=== PATIENT | female | born 1990 | race Hispanic/Latino ===

== ENCOUNTER 2016-08-18 11:04 | Emergency (ER) | payer SELFPAY ==
[~2016-08-18] VITALS: Ht 152.4 cm; Wt 65.0 kg
[~2016-08-18 11:04] MED LIST: AMOXICILLIN500 MG PO; ATIVAN0.5 MG PO; FEOSOL45 MG PO; GLUCOPHAGE500 MG; IBUPROFEN600 MG PO; LORTAB 7.57.5 MG PO; MACRODANTIN100 MG PO; NORCO1 TA2 PO; PRE-NATAL PO
[2016-08-18] MEDS ORDERED: NORTREL PO (11:22)
[2016-08-18 12:29] LABS: URINE BLOOD DIPSTICK NEGATIVE (NEGATIVE); URINE CLARITY CLEAR; URINE COLOR YELLOW; URINE GLUCOSE - DIPSTICK NEGATIVE (NEGATIVE); URINE KETONE NEGATIVE (NEGATIVE); URINE LEUK ESTERASE NEGATIVE (NEGATIVE); URINE NITRITE - DIPSTICK NEGATIVE (Negative); URINE PROTEIN - DIPSTICK 30 mg/dL (NEG-TRACE); URINE SPECIFIC GRAVITY >=1.030; URINE UROBILINOGEN - DIPSTICK 0.2 E.U./dL (0.2)
[2016-08-18 12:37] LABS: HEMOGLOBIN 15.9 g/dl (12.0-16.0); IMMATURE GRANULOCYTES 0.2 % (0.0-1.0); MEAN CELL VOLUME 83.6 fL CALC (80.0-100.0); MEAN CORPUSCULAR HGB 29.6 pG CALC (26.0-32.0); MEAN CORPUSCULAR HGB CONC 35.3 g/L CALC (32.0-36.0); NEUT# 3.27 thou/uL (2.00-7.15); RED BLOOD COUNT 5.38 mill/uL (4.20-5.60); RED CELL DISTRI WIDTH 12.4 % (11.5-15.5)
[2016-08-18 13:04] LABS: ALBUMIN 5.2 g/dL (3.2-5.0); ALKALINE PHOSPHATASE 92 u/l (38-126); AMYLASE 41 u/l (30-110); ANION GAP 22 (6-22 (CALC)); BILIRUBIN, TOTAL 0.5 mg/dL (0.0-1.4); BUN 14 mg/dL (7-17); BUN/CREATININE RATIO 21 (12-20 (CALC)); CALCIUM 9.7 mg/dL (8.4-10.2); CARBON DIOXIDE 19 mmol/l (22-30); CHLORIDE 104 mmol/l (95-108); CREATININE 0.6 mg/dL (0.5-1.0); GFR > 60 ML/MIN (>=60 (CALC)); GFR FOR AFR.AMER. > 60 ML/MIN (>=60 (CALC)); GLUCOSE 96 mg/dL (65-105); LIPASE 47 u/l (23-300); POTASSIUM 3.5 mmol/l (3.5-5.1); SGOT/AST 35 u/l (14-36); SGPT/ALT 71 u/l (9-52); SODIUM 141 mmol/l (137-146); TOTAL PROTEIN 9.3 g/dL (6.3-8.2)
[2016-08-18 13:12] LABS: URINE BILIRUBIN - DIPSTICK SMALL (NEGATIVE)
[2016-08-18 13:15] LABS: URINE SQUAMOUS EPITHELIAL CELL FEW EPI/hpf (0-FEW)
[2016-08-18 13:15] LABS: MYOGLOBIN 14 ng/mL (0 - 62)
[2016-08-18] MEDS ORDERED: IMODIUM2 MG PO (14:49)
[2016-08-18] MEDS ORDERED: ZOFRAN ODT4 MG PO (14:49)
[2016-08-18 15:19] VITALS: BP 104/70
== END 2016-08-18 15:27 | disposition home or self-care (01) | DRG 641 ==
LOC: ED 11:04
PROVIDERS: Emergency Medicine
DX: E86.0 Dehydration (principal); R55 Syncope and collapse; R19.7 Diarrhea, unspecified; R11.0 Nausea; R53.81 Other malaise

== ENCOUNTER 2017-11-27 09:40 | Emergency (ER) | payer SELFPAY ==
[~2017-11-27] VITALS: Ht 152.4 cm; Wt 65.9 kg
[~2017-11-27 09:40] MED LIST changes: +IMODIUM2 MG PO; +NORTREL PO; +ZOFRAN ODT4 MG PO
[2017-11-27 11:17] LABS: URINE BILIRUBIN - DIPSTICK NEGATIVE (NEGATIVE); URINE BLOOD DIPSTICK SMALL (NEGATIVE); URINE COLOR YELLOW; URINE GLUCOSE - DIPSTICK NEGATIVE (NEGATIVE); URINE KETONE NEGATIVE (NEGATIVE); URINE LEUK ESTERASE NEGATIVE (NEGATIVE); URINE NITRITE - DIPSTICK NEGATIVE (Negative); URINE PROTEIN - DIPSTICK NEGATIVE (NEG-TRACE); URINE SPECIFIC GRAVITY 1.015; URINE UROBILINOGEN - DIPSTICK 0.2 E.U./dL (0.2)
[2017-11-27 11:19] LABS: HEMATOCRIT 40.5 % (37.0-47.0); HEMOGLOBIN 14.1 g/dl (12.0-16.0); IMMATURE GRANULOCYTES 0.2 % (0.0-1.0); MEAN CORPUSCULAR HGB 30.9 pG CALC (26.0-32.0); MEAN CORPUSCULAR HGB CONC 34.8 g/L CALC (32.0-36.0); NEUT# 2.01 thou/uL (2.00-7.15); RED BLOOD COUNT 4.56 mill/uL (4.20-5.60); RED CELL DISTRI WIDTH 12.5 % (11.5-15.5)
[2017-11-27 11:19] LABS: URINE CLARITY CLEAR
[2017-11-27 11:20] LABS: URINE EPITHELIAL CELLS FEW EPI/hpf (0-FEW); URINE RBC 0-2 RBC/hpf (0-5)
[2017-11-27 11:21] LABS: MEAN CELL VOLUME 88.8 fL CALC (80.0-100.0)
[2017-11-27 11:33] LABS: ALBUMIN 4.8 g/dL (3.2-5.0); ALKALINE PHOSPHATASE 91 u/l (38-126); ANION GAP 13 (6-22 (CALC)); BILIRUBIN, TOTAL 0.4 mg/dL (0.0-1.4); BUN 13 mg/dL (7-17); BUN/CREATININE RATIO 26 (12-20 (CALC)); CHLORIDE 105 mmol/l (95-108); CREATININE 0.5 mg/dL (0.5-1.0); GFR > 60 ML/MIN (>=60 (CALC)); GFR FOR AFR.AMER. > 60 ML/MIN (>=60 (CALC)); LIPASE 97 u/l (23-300); POTASSIUM 4.2 mmol/l (3.5-5.1); SGOT/AST 36 u/l (14-36); SGPT/ALT 77 u/l (9-52); SODIUM 141 mmol/l (137-146); TOTAL PROTEIN 8.3 g/dL (6.3-8.2)
[2017-11-27 11:34] LABS: CARBON DIOXIDE 27 mmol/l (22-30)
[2017-11-27] MEDS ORDERED: MAGNESIUM296 ML/BTL PO (11:57)
[2017-11-27 12:35] VITALS: BP 107/69
== END 2017-11-27 12:35 | disposition home or self-care (01) | DRG 392 ==
LOC: ED 09:40
PROVIDERS: Family Medicine
DX: R10.31 Right lower quadrant pain (principal)

== ENCOUNTER 2018-02-15 15:53 | Emergency (ER) | payer SELFPAY ==
[~2018-02-15] VITALS: Ht 152.4 cm; Wt 66.0 kg
[~2018-02-15 15:53] MED LIST changes: +MAGNESIUM296 ML/BTL PO
[2018-02-15 16:58] LABS: HEMATOCRIT 36.8 % (37.0-47.0); HEMOGLOBIN 12.7 g/dl (12.0-16.0); IMMATURE GRANULOCYTES 0.2 % (0.0-5.0); MEAN CELL VOLUME 88.7 fL CALC (80.0-100.0); MEAN CORPUSCULAR HGB 30.6 pG CALC (26.0-32.0); MEAN CORPUSCULAR HGB CONC 34.5 g/L CALC (32.0-36.0); NEUT# 3.13 thou/uL (2.00-7.15); RED BLOOD COUNT 4.15 mill/uL (4.20-5.60); RED CELL DISTRI WIDTH 12.8 % (11.5-15.5)
[2018-02-15 16:59] LABS: URINE BILIRUBIN - DIPSTICK NEGATIVE (NEGATIVE); URINE BLOOD DIPSTICK LARGE (NEGATIVE); URINE CLARITY HAZY; URINE COLOR YELLOW; URINE GLUCOSE - DIPSTICK NEGATIVE (NEGATIVE); URINE KETONE NEGATIVE (NEGATIVE); URINE LEUK ESTERASE TRACE (NEGATIVE); URINE NITRITE - DIPSTICK NEGATIVE (Negative); URINE PROTEIN - DIPSTICK NEGATIVE (NEG-TRACE)
[2018-02-15 17:05] LABS: URINE SQUAMOUS EPITHELIAL CELL FEW EPI/hpf (0-FEW); URINE WBC 0-2 WBC/hpf (0-5)
[2018-02-15 17:13] LABS: BUN 11 mg/dL (7-17); BUN/CREATININE RATIO 24 (12-20 (CALC)); CARBON DIOXIDE 26 mmol/l (22-30); CREATININE 0.5 mg/dL (0.5-1.0); GFR > 60 ML/MIN (>=60 (CALC)); GFR FOR AFR.AMER. > 60 ML/MIN (>=60 (CALC)); POTASSIUM 3.5 mmol/l (3.5-5.1); SODIUM 141 mmol/l (137-146)
[2018-02-15 17:15] LABS: ANION GAP 13 (6-22 (CALC)); CHLORIDE 106 mmol/l (95-108)
[2018-02-15 17:55] LABS: BETA-HCG, QUANT(RESULT NUMBER) 26516 mIU/mL
[2018-02-15 19:15] VITALS: BP 116/84
== END 2018-02-15 19:17 | disposition home or self-care (01) | DRG 833 ==
LOC: ED 15:53
PROVIDERS: Family Medicine
DX: O20.0 Threatened abortion (principal); Z3A.01 Less than 8 weeks gestation of pregnancy

== ENCOUNTER 2018-05-15 05:09 | Emergency (ER) | payer SELFPAY ==
[~2018-05-15] VITALS: Ht 152.4 cm; Wt 68.0 kg
[2018-05-15] MEDS ORDERED: PRENATA3 PO (05:33)
[2018-05-15 07:40] VITALS: BP 115/63
== END 2018-05-15 07:49 | disposition home or self-care (01) | DRG 833 ==
LOC: ED 05:09
DX: O26.892 Other specified pregnancy related conditions, second trimester (principal); R20.2 Paresthesia of skin; M79.642 Pain in left hand; M79.641 Pain in right hand; M25.511 Pain in right shoulder; Z3A.20 20 weeks gestation of pregnancy

== ENCOUNTER 2018-09-21 10:06 | Emergency (ER) | payer OTHER ==
[~2018-09-21] VITALS: Ht 152.4 cm; Wt 90.0 kg
[~2018-09-21 10:06] MED LIST changes: +PRENATA3 PO
[2018-09-21 10:30] VITALS: BP 125/59
[2018-09-21 10:49] LABS: HEMATOCRIT 36.9 % (37.0-47.0); IMMATURE GRANULOCYTES 1.1 % (0.0-5.0); MEAN CELL VOLUME 84.6 fL CALC (80.0-100.0); MEAN CORPUSCULAR HGB 27.5 pG CALC (26.0-32.0); MEAN CORPUSCULAR HGB CONC 32.5 g/L CALC (32.0-36.0); NEUT# 12.62 thou/uL (2.00-7.15); RED BLOOD COUNT 4.36 mill/uL (4.20-5.60); RED CELL DISTRI WIDTH 14.1 % (11.5-15.5)
[2018-09-21 10:59] LABS: ANION GAP 14 (6-22 (CALC)); BILIRUBIN, TOTAL 0.5 mg/dL (0.0-1.4); BUN 6 mg/dL (7-17); BUN/CREATININE RATIO 15 (12-20 (CALC)); CARBON DIOXIDE 21 mmol/l (22-30); CHLORIDE 103 mmol/l (95-108); CREATININE 0.4 mg/dL (0.5-1.0); GFR > 60 ML/MIN (>=60 (CALC)); GFR FOR AFR.AMER. > 60 ML/MIN (>=60 (CALC)); POTASSIUM 3.8 mmol/l (3.5-5.1); SGOT/AST 27 u/l (14-36); SODIUM 134 mmol/l (137-146); TOTAL PROTEIN 7.3 g/dL (6.3-8.2)
[2018-09-21 11:00] LABS: ALKALINE PHOSPHATASE 275 u/l (38-126)
== END 2018-09-21 10:40 | DRG 832 ==
LOC: ED 10:06
PROVIDERS: Emergency Medicine
DX: O60.03 Preterm labor without delivery, third trimester (principal); O75.2 Pyrexia during labor, not elsewhere classified; O34.219 Maternal care for unspecified type scar from previous cesarean delivery; N85.8 Other specified noninflammatory disorders of uterus; Z3A.00 Weeks of gestation of pregnancy not specified
CPT/HCPCS: J0131

== ENCOUNTER 2020-03-21 22:38 | Emergency (ER) | payer SELFPAY ==
[~2020-03-21] VITALS: Ht 152.4 cm; Wt 63.6 kg
[2020-03-21 23:23] LABS: URINE BILIRUBIN - DIPSTICK NEGATIVE (NEGATIVE); URINE BLOOD DIPSTICK TRACE-LYSED (NEGATIVE); URINE COLOR YELLOW; URINE GLUCOSE - DIPSTICK NEGATIVE (NEGATIVE); URINE KETONE TRACE mg/dL (NEGATIVE); URINE LEUK ESTERASE NEGATIVE (NEGATIVE); URINE NITRITE - DIPSTICK NEGATIVE (Negative); URINE PROTEIN - DIPSTICK NEGATIVE (NEG-TRACE); URINE SPECIFIC GRAVITY 1.015; URINE UROBILINOGEN - DIPSTICK 0.2 E.U./dL (0.2)
[2020-03-21 23:26] LABS: IMMATURE GRANULOCYTES 0.3 % (0.0-5.0); MEAN CORPUSCULAR HGB 30.3 pG CALC (26.0-32.0); MEAN CORPUSCULAR HGB CONC 33.7 g/dL CAL (32.0-36.0); NEUT# 8.67 thou/uL (2.00-7.15); RED BLOOD COUNT 4.92 mill/uL (4.20-5.60); RED CELL DISTRI WIDTH 12.4 % (11.5-15.5)
[2020-03-21 23:31] LABS: HEMATOCRIT 44.2 % (37.0-47.0); HEMOGLOBIN 14.9 g/dl (12.0-16.0); MEAN CELL VOLUME 89.8 fL CALC (80.0-100.0); URINE BACTERIA FEW hpf; URINE SQUAMOUS EPITHELIAL CELL FEW EPI/hpf (0-FEW); URINE WBC 0-2 WBC/hpf (0-5)
[2020-03-21 23:32] LABS: BILIRUBIN, TOTAL 0.5 mg/dL (0.0-1.4); BUN 16 mg/dL (7-17); BUN/CREATININE RATIO 30 (12-20 (CALC)); CHLORIDE 100 mmol/l (95-108); CREATININE 0.5 mg/dL (0.5-1.0); ETHYL ALCOHOL 0 mg/dl (0-30); GFR > 60 ML/MIN (>=60 (CALC)); GFR FOR AFR.AMER. > 60 ML/MIN (>=60 (CALC)); POTASSIUM 3.9 mmol/l (3.5-5.1); SGOT/AST 29 u/l (14-36)
[2020-03-21 23:33] LABS: ALBUMIN 5.3 g/dL (3.2-5.0); ALKALINE PHOSPHATASE 85 u/l (38-126); ANION GAP 14 (6-22 (CALC)); CARBON DIOXIDE 31 mmol/l (22-30); SODIUM 141 mmol/l (137-146); TOTAL PROTEIN 9.1 g/dL (6.3-8.2)
[2020-03-21 23:43] LABS: MYOGLOBIN 46 ng/mL (0 - 62)
[2020-03-22 00:45] VITALS: BP 109/57
[2020-03-22] MEDS ORDERED: PHENERGAN25 MG/TAB PO (00:49)
== END 2020-03-22 01:22 | disposition home or self-care (01) | DRG 103 ==
LOC: ED 22:38
PROVIDERS: Family Medicine
DX: R51.9 Headache, unspecified (principal); K52.9 Noninfective gastroenteritis and colitis, unspecified; R55 Syncope and collapse

== ENCOUNTER 2021-03-26 22:14 | Emergency (ER) | payer MEDICAID ==
[~2021-03-26] VITALS: Ht 152.4 cm; Wt 91.0 kg
[~2021-03-26 22:14] MED LIST changes: +PHENERGAN25 MG/TAB PO
[2021-03-26 22:53] LABS: HEMOGLOBIN 10.9 g/dl (12.0-16.0); IMMATURE GRANULOCYTES 0.2 % (0.0-5.0); MEAN CELL VOLUME 87.6 fL CALC (80.0-100.0); MEAN CORPUSCULAR HGB 28.1 pG CALC (26.0-32.0); MEAN CORPUSCULAR HGB CONC 32.1 g/dL CAL (32.0-36.0); NEUT# 7.93 thou/uL (2.00-7.15); RED BLOOD COUNT 3.88 mill/uL (4.20-5.60); RED CELL DISTRI WIDTH 14.6 % (11.5-15.5)
[2021-03-26] MEDS ORDERED: STOOL SOFTENER100 M1 PO (23:05)
[2021-03-26] MEDS ORDERED: IBUPROFEN600 MG PO (23:06)
[2021-03-26 23:09] LABS: AMYLASE 63 u/l (30-110); ANION GAP 10 (6-22 (CALC)); BILIRUBIN, TOTAL 0.5 mg/dL (0.0-1.4); BUN 8 mg/dL (7-17); BUN/CREATININE RATIO 23 (12-20 (CALC)); CARBON DIOXIDE 25 mmol/l (22-30); CHLORIDE 105 mmol/l (95-108); CREATININE 0.4 mg/dL (0.5-1.0); GFR > 60 ML/MIN (>=60 (CALC)); GFR FOR AFR.AMER. > 60 ML/MIN (>=60 (CALC)); LIPASE 105 u/l (23-300); POTASSIUM 3.4 mmol/l (3.5-5.1); SODIUM 137 mmol/l (137-146)
[2021-03-26 23:14] LABS: ALBUMIN 3.3 g/dL (3.2-5.0); ALKALINE PHOSPHATASE 190 u/l (38-126); SGOT/AST 53 u/l (14-36); TOTAL PROTEIN 6.5 g/dL (6.3-8.2)
[2021-03-26 23:29] LABS: URINE BILIRUBIN - DIPSTICK NEGATIVE (NEGATIVE); URINE BLOOD DIPSTICK MODERATE (NEGATIVE); URINE COLOR YELLOW; URINE GLUCOSE - DIPSTICK NEGATIVE (NEGATIVE); URINE KETONE NEGATIVE (NEGATIVE); URINE PROTEIN - DIPSTICK NEGATIVE (NEG-TRACE); URINE SPECIFIC GRAVITY 1.025; URINE UROBILINOGEN - DIPSTICK 0.2 E.U./dL (0.2)
[2021-03-26 23:30] LABS: URINE NITRITE - DIPSTICK NEGATIVE (Negative)
[2021-03-26 23:31] LABS: URINE LEUK ESTERASE NEGATIVE (NEGATIVE)
[2021-03-26 23:40] LABS: URINE EPITHELIAL CELLS MANY EPI/hpf (0-FEW)
[2021-03-26 23:41] LABS: URINE BACTERIA MODERATE hpf
[2021-03-27] MEDS ORDERED: ULTRAM50 M1 PO (04:02)
[2021-03-27] MEDS ORDERED: BACTRIM DS1 TAB PO (04:02)
[2021-03-27] MEDS ORDERED: ONDANSETRON4 MG PO (04:03)
[2021-03-27 04:11] VITALS: BP 110/60
== END 2021-03-27 04:28 | disposition home or self-care (01) ==
LOC: ED 22:14
PROVIDERS: Emergency Medicine
DX: O92.79 Other disorders of lactation (principal); O99.63 Diseases of the digestive system complicating the puerperium; K52.9 Noninfective gastroenteritis and colitis, unspecified
CPT/HCPCS: Q9967

== ENCOUNTER 2021-08-11 21:03 | Emergency (ER) | payer MEDICAID ==
[~2021-08-11] VITALS: Ht 152.4 cm; Wt 73.0 kg
[~2021-08-11 21:03] MED LIST changes: +BACTRIM DS1 TAB PO; +ONDANSETRON4 MG PO; +STOOL SOFTENER100 M1 PO; +ULTRAM50 M1 PO
[2021-08-11 22:27] VITALS: BP 147/90
[2021-08-11 22:31] VITALS: BP 130/79
[2021-08-11 23:06] LABS: HEMATOCRIT 38.9 % (37.0-47.0); IMMATURE GRANULOCYTES 0.1 % (0.0-5.0); MEAN CELL VOLUME 86.3 fL CALC (80.0-100.0); MEAN CORPUSCULAR HGB CONC 33.7 g/dL CAL (32.0-36.0); NEUT# 4.36 thou/uL (2.00-7.15); RED BLOOD COUNT 4.51 mill/uL (4.20-5.60); RED CELL DISTRI WIDTH 13.5 % (11.5-15.5)
[2021-08-11 23:08] LABS: HEMOGLOBIN 13.1 g/dl (12.0-16.0); URINE BILIRUBIN - DIPSTICK NEGATIVE (NEGATIVE); URINE BLOOD DIPSTICK LARGE (NEGATIVE); URINE GLUCOSE - DIPSTICK NEGATIVE (NEGATIVE); URINE KETONE NEGATIVE (NEGATIVE); URINE LEUK ESTERASE NEGATIVE (NEGATIVE); URINE PROTEIN - DIPSTICK 30 mg/dL (NEG-TRACE); URINE SPECIFIC GRAVITY 1.025
[2021-08-11 23:09] LABS: URINE NITRITE - DIPSTICK NEGATIVE (Negative)
[2021-08-11 23:10] LABS: URINE COLOR AMBER
[2021-08-11 23:13] LABS: URINE RBC 50-100 RBC/hpf (0-5); URINE SQUAMOUS EPITHELIAL CELL FEW EPI/hpf (0-FEW)
[2021-08-11 23:33] LABS: ALBUMIN 4.5 g/dL (3.2-5.0); ALKALINE PHOSPHATASE 105 u/l (38-126); ANION GAP 12 (6-22 (CALC)); BILIRUBIN, TOTAL 0.2 mg/dL (0.0-1.4); BUN 17 mg/dL (7-17); BUN/CREATININE RATIO 39 (12-20 (CALC)); CARBON DIOXIDE 26 mmol/l (22-30); CHLORIDE 103 mmol/l (95-108); CREATININE 0.4 mg/dL (0.5-1.0); GFR > 60 ML/MIN (>=60 (CALC)); GFR FOR AFR.AMER. > 60 ML/MIN (>=60 (CALC)); POTASSIUM 3.7 mmol/l (3.5-5.1); SGOT/AST 28 u/l (14-36); SODIUM 137 mmol/l (137-146); TOTAL PROTEIN 7.7 g/dL (6.3-8.2)
[2021-08-11 23:49] LABS: BETA-HCG, QUANT(RESULT NUMBER) <2 mIU/mL
[2021-08-12 00:10] VITALS: BP 130/79
== END 2021-08-12 00:20 | disposition home or self-care (01) ==
LOC: ED 21:03
PROVIDERS: Emergency Medicine
DX: N93.8 Other specified abnormal uterine and vaginal bleeding (principal); Z86.73 Personal history of transient ischemic attack (TIA), and cerebral infarction without residual deficits

== ENCOUNTER 2021-10-24 13:34 | Emergency (ER) | payer MEDICAID ==
[~2021-10-24] VITALS: Ht 152.4 cm; Wt 77.0 kg
[2021-10-24 14:06] VITALS: BP 132/92
[2021-10-24 14:28] LABS: HEMATOCRIT 40.9 % (37.0-47.0); HEMOGLOBIN 13.8 g/dl (12.0-16.0); IMMATURE GRANULOCYTES 0.3 % (0.0-5.0); MEAN CELL VOLUME 90.1 fL CALC (80.0-100.0); MEAN CORPUSCULAR HGB 30.4 pG CALC (26.0-32.0); MEAN CORPUSCULAR HGB CONC 33.7 g/dL CAL (32.0-36.0); NEUT# 3.48 thou/uL (2.00-7.15); RED BLOOD COUNT 4.54 mill/uL (4.20-5.60)
[2021-10-24 14:46] LABS: ALBUMIN 4.7 g/dL (3.2-5.0); ALKALINE PHOSPHATASE 76 u/l (38-126); ANION GAP 12 (6-22 (CALC)); BUN 12 mg/dL (7-17); BUN/CREATININE RATIO 25 (12-20 (CALC)); CARBON DIOXIDE 27 mmol/l (22-30); CHLORIDE 105 mmol/l (95-108); CREATININE 0.5 mg/dL (0.5-1.0); GFR FOR AFR.AMER. > 60 ML/MIN (>=60 (CALC)); GFR OTHER RACES > 60 ML/MIN (>=60 (CALC)); LIPASE 59 u/l (23-300); SODIUM 140 mmol/l (137-146); TOTAL PROTEIN 8.2 g/dL (6.3-8.2)
[2021-10-24 14:48] LABS: BILIRUBIN, TOTAL 0.5 mg/dL (0.0-1.4); SGOT/AST 67 u/l (14-36)
[2021-10-24 15:07] LABS: PROTHROMBIN TIME 10.3 SECONDS (9.0-12.5)
[2021-10-24 16:35] VITALS: BP 132/92
== END 2021-10-24 17:17 | disposition short-term general hospital (02) ==
LOC: ED 13:34
PROVIDERS: Family Medicine
DX: I63.9 Cerebral infarction, unspecified (principal); R47.81 Slurred speech; R29.810 Facial weakness; R29.701 NIHSS score 1; Z86.73 Personal history of transient ischemic attack (TIA), and cerebral infarction without residual deficits; Z20.822 Contact with and (suspected) exposure to COVID-19; R20.0 Anesthesia of skin; R11.2 Nausea with vomiting, unspecified

== ENCOUNTER 2023-02-13 15:16 | Emergency (ER) | payer OTHER ==
[~2023-02-13] VITALS: Ht 152.4 cm; Wt 81.6 kg
[2023-02-13 15:21] VITALS: BP 136/98
[2023-02-13 15:58] LABS: BASO% 0.4 % (0-3); EOS% 3.8 % (0-8); HEMATOCRIT 39.9 % (37.0-47.0); HEMOGLOBIN 13.6 g/dl (12.0-16.0); IMMATURE GRANULOCYTES 0.1 % (0.0-5.0); LYMPH% 31.8 % (15-41); MEAN CELL VOLUME 87.9 fL CALC (80.0-100.0); MEAN CORPUSCULAR HGB CONC 34.1 g/dL CAL (32.0-36.0); MONO% 8.5 % (2-13); NEUT# 3.77 thou/uL (2.00-7.15); NEUT% 55.4 % (42-76); RED BLOOD COUNT 4.54 mill/uL (4.20-5.60); RED CELL DISTRI WIDTH 12.3 % (11.5-15.5)
[2023-02-13 15:59] LABS: URINE BILIRUBIN - DIPSTICK Negative (NEGATIVE); URINE BLOOD DIPSTICK Trace-lysed (NEGATIVE); URINE GLUCOSE - DIPSTICK Negative (NEGATIVE); URINE KETONE Negative (NEGATIVE); URINE LEUK ESTERASE Negative (NEGATIVE); URINE NITRITE - DIPSTICK Negative (Negative); URINE PH 6.5 (4.5-8.0); URINE PROTEIN - DIPSTICK Negative (NEG-TRACE); URINE SPECIFIC GRAVITY <=1.005; URINE UROBILINOGEN - DIPSTICK 0.2 E.U./dL (0.2)
[2023-02-13 16:04] VITALS: BP 108/74
[2023-02-13 16:07] LABS: URINE COLOR Yellow
[2023-02-13 16:15] VITALS: BP 113/74
[2023-02-13 16:17] LABS: ALBUMIN 4.5 g/dL (3.2-5.0); ALKALINE PHOSPHATASE 78 u/l (38-126); ANION GAP 12 (6-22 (CALC)); BILIRUBIN, TOTAL 0.4 mg/dL (0.02-1.3); BUN 11 mg/dL (7-17); BUN/CREATININE RATIO 21 (12-20 (CALC)); CARBON DIOXIDE 25 mmol/l (22-30); CHLORIDE 105 mmol/l (95-108); CREATININE 0.5 mg/dL (0.5-1.0); GFR FOR AFR.AMER. > 60 ML/MIN (>=60 (CALC)); GFR OTHER RACES > 60 ML/MIN (>=60 (CALC)); POTASSIUM 3.4 mmol/l (3.5-5.1); SGOT/AST 66 u/l (14-36); SODIUM 139 mmol/l (137-146)
[2023-02-13 16:30] VITALS: BP 106/68
[2023-02-13 16:45] VITALS: BP 111/74
[2023-02-13 16:56] VITALS: BP 111/74
== END 2023-02-13 17:09 | disposition home or self-care (01) | DRG 923 ==
LOC: ED 15:16
PROVIDERS: Family Medicine
DX: Z04.1 Encounter for examination and observation following transport accident (principal); Z86.73 Personal history of transient ischemic attack (TIA), and cerebral infarction without residual deficits

== ENCOUNTER 2024-01-28 02:44 | Emergency (ER) | payer SELFPAY ==
[~2024-01-28] VITALS: Ht 152.4 cm; Wt 62.0 kg
[2024-01-28 02:52] VITALS: BP 111/81
[2024-01-28 03:53] VITALS: BP 111/81
== END 2024-01-28 03:55 | disposition home or self-care (01) | DRG 156 ==
LOC: ED 02:44
PROC: 3E1B78Z Irrigation of Ear using Irrigating Substance, Via Natural or Artificial Opening (ICD-10-PCS; principal; 2024-01-28)
DX: H61.21 Impacted cerumen, right ear (principal)